=== PATIENT | male | born 1995 | race Caucasian/White ===

== ENCOUNTER 2017-02-09 08:49 | Day surgery (SDC) | payer OTHER ==
[~2017-02-09 08:49] MED LIST: ACETAMINOPHEN 500 MG TABLET PO PRN; DEXAMETHASONE SOD PHOSPHATE 10 MG/ML VIAL IV PRN; MORPHINE SULFATE 10 MG/ML SYRG IV PRN; MORPHINE SULFATE 2 MG/ML DISP.SYRIN IV PRN; MORPHINE SULFATE 4 MG/ML SYRG IV PRN; ONDANSETRON HCL/PF 2 MG/ML VIAL IV PRN; PROMETHAZINE HCL 10 MG in DEXTROSE 5 % IN WATER 50 ML IV PRN; PROMETHAZINE HCL 5 MG in DEXTROSE 5 % IN WATER 50 ML IV PRN; RINGER'S SOLUTION,LACTATED 1,000 ML IV PRN; oxyCODONE HCL 5 MG/5 ML UDC PO PRN
[2017-02-09] MEDS ORDERED: RINGER'S SOLUTION,LACTATED 1,000 ML IV ONE ×2 (09:42→12:25)
[2017-02-09] MEDS ORDERED: BUPIVACAINE HCL 50 ML VIAL IJ ONE ×2 (11:20)
[2017-02-09] MEDS ORDERED: ONDANSETRON HCL/PF 2 MG/ML VIAL ONE (12:47)
[2017-02-09 13:41] VITALS: BP 133/68
== END 2017-02-09 08:50 | disposition home or self-care (01) ==
LOC: AMB 08:49
PROVIDERS: ATTEND Allergy & Immunology
PROC: 0CTQXZZ Resection of Adenoids, External Approach (ICD-10-PCS; 2017-02-09)
PROC: 0CTPXZZ Resection of Tonsils, External Approach (ICD-10-PCS; principal; 2017-02-09 10:55)
DX: J35.3 Hypertrophy of tonsils with hypertrophy of adenoids (principal); Z68.39 Body mass index [BMI] 39.0-39.9, adult
CPT/HCPCS: 42821; J2405